=== PATIENT | male | born 1955 | race African-American/Black ===

== ENCOUNTER 2020-11-08 09:13 | Inpatient (IN) | payer MEDICARE ==
[2020-11-08 10:46] LABS: #Monocytes 0.5 thou/uL (0.11-0.59); #Neutrophils 7.5 thou/uL (1.40-6.50); %Monocytes 5.8 % (0.0-10.0); %Neutrophils 83.2 % (42.0-75.0); Hemoglobin 14.6 g/dL (14.0-18.0); Mean Corpuscular HGB CONC 31.9 g/dL (32.0-36.0); Mean Corpuscular Hemoglobin 28.7 pg (27.0-31.0); Mean Corpuscular Volume 89.9 fL (78.0-98.0); Mean Platelet Volume 9.5 fL (7.4-10.4); Platelet Count 250 thou/uL (130-400); RBC Distribution Width 12.3 % (11.5-14.5); Red Blood Cell (RBC) Count 5.11 mill/uL (4.70-6.10); White Blood Cell (WBC) Count 9.1 thou/uL (4.8-10.8)
[2020-11-08] MEDS ORDERED: Acetaminophen 500 MG TAB ONE (11:03)
[2020-11-08] MEDS ORDERED: cefTRIAXone\\ROCEPHIN 1 GM VIAL ONE (11:03)
[2020-11-08] MEDS ORDERED: Dexamethasone 10 MG/ML VIAL ONE (11:03)
[2020-11-08] MEDS ORDERED: Azithromycin 500 MG VIAL ONE (11:03)
[2020-11-08 11:06] LABS: ALT (SGPT) 87 U/L (8-55); AST (SGOT) 81 U/L (5-34); Albumin 3.7 g/dL (3.4-4.8); Alkaline Phosphatase 111 U/L (40-110); Anion Gap 19 mmol/L (10-20); BUN (Urea Nitrogen) 26 mg/dL (8.4-25.7); Bilirubin, Total 0.7 mg/dL (0.2-1.2); Calc. Creatinine Clearance 0 mL/min (70-130); Carbon Dioxide 25 mmol/L (23-31); Chloride 103 mmol/L (98-107); Globulin 4.8 g/dL (2.4-3.5); Glucose 206 mg/dL (80-115); Potassium 4.1 mmol/L (3.5-5.1); Protein, Total 8.5 g/dL (5.8-8.1); Sodium 143 mmol/L (136-145)
--- NOTE | 2020-11-08 11:08 | RAD ---
EXAM: Chest one view: HISTORY: Dyspnea COMPARISON: None FINDINGS: Poor inspiration. Heart size: Within normal limits. Lungs: Patchy bilateral interstitial, alveolar, and groundglass opacity changes throughout both lungs . No significant pleural effusion or confluent lobar pneumonia. IMPRESSION: Bilateral patchy parenchymal changes, certainly evidence for Covid pneumonia. Poor inspiration. Continued short-term follow-up.
[2020-11-08] MEDS ORDERED: Iopamidol-370 76% 500 ML 1 ML ONE (11:27)
[2020-11-08] MEDS ORDERED: Loperamide HCl 2 MG CAP PO PRN (12:18)
[2020-11-08] MEDS ORDERED: PROVENTIL INHALER 6.7 G (200 INHALATIONS) INH PRN (12:18)
[2020-11-08] MEDS ORDERED: Acetaminophen 325 MG TAB PO PRN (12:18)
[2020-11-08] MEDS ORDERED: Ondansetron ODT 4 MG TAB PO PRN (12:18)
[2020-11-08] MEDS ORDERED: Calcium Carbonate 500 MG ChewTAB PO PRN (12:18)
[2020-11-08] MEDS ORDERED: Ondansetron PF 4 MG/2 ML Vial IVP PRN (12:18)
[2020-11-08] MEDS ORDERED: Zolpidem Tartrate 5 MG TAB PO PRN (12:18)
[2020-11-08] MEDS ORDERED: HYDROcodone/Acetaminophen 5/325 mg Tablet PO PRN (12:18)
[2020-11-08] MEDS ORDERED: Bisacodyl 5 MG TAB PO PRN (12:18)
[2020-11-08] MEDS ORDERED: Guaifenesin DM 100-10/5 ML UDCUP PO PRN (12:18)
[2020-11-08] MEDS ORDERED: Senokot S 8.6-50 MG TAB PO PRN (12:18)
[2020-11-08 12:20] LABS: SARS-CoV-2 NAA Rapid Test DETECTED (NotDetected)
--- NOTE | 2020-11-08 13:07 | CT ---
EXAM: CT angiogram of the chest including 3-D rendering: HISTORY: Dyspnea COMPARISON: None FINDINGS: There is adequate opacification of the pulmonary arteries. No evidence for aortic aneurysm or dissection. Severe motion artifact considerably lowers the sensitivity of this study. No evidence for central pul monary artery thrombosis. Extensive bilateral interstitial, alveolar, and groundglass opacity parenchymal changes evidence for bilateral Covid pneumonia. Borderline size left AP window lymph node. No evidence for pleural or pericardial effusion. Small hiatal hernia. IMPRESSION: No convincing CT evidence for central pulmonary artery thrombosis. Evidence for extensive bilateral Covid pneumonia.
--- NOTE | 2020-11-08 13:12 | PDOC.HHP ---
Hospitalist HPI - History of Present Illness Shortness of breath History of Present Illness: 64-year-old -[place] male who has 7-day history of generalized weakness, diarrhea, intermittent fever, coughing, shortness of breath, patient was exposed with people who were sick, but he did not do any test, he was having increasing shortness of breath and intermittent nausea vomiting, he was also having diarrhea, he was not feeling good, he was severely weak, so patient decided to come to emergency room., In the emergency room patient was hypoxic, he was saturating 87% on room air, he was also having low-grade fever, he had routine laboratory test done which showed mild acute kidney injury as well as lactic acidosis and transaminitis, his COVID-19 test came back positive, he had elevated D-dimer and that is why we did a CT angiography in the emergency room which showed no evidence of pulmonary embolism but consistent with extensive bilateral Covid pneumonia, his chest x-ray was also consistent with Covid pneumonia. ED Course: In the emergency room patient has received Rocephin 1 g, azithromycin 500 mg, dexamethasone 10 mg, IV fluid 1 L, Tylenol 1 g VITAL SIGNS WedNov 08, 2020 09:15 KATE Bhardwaj Catherine BP: 144/102, Pulse: 122, Resp: 19, Temp: 99.7 (Oral), Pain: 7, O2 sat: 87 on (Room Air), Time: 11/08/2020 09:15. VITAL SIGNS WedNov 08, 2020 10:21 KATE Murray Tori BP: 150/80, Pulse: 96, Resp: 22, Pain: 7, O2 sat: 96 on (2L Oxygen), Time: 11/08/2020 10:21. VITAL SIGNS WedNov 08, 2020 12:52 KATE Rosado Elizabeth BP: 150/96, MAP: 114, Pulse: 86, Resp: 29, Temp: 99.5 (Oral), Pain: 0, O2 sat: 99 on (3L Oxygen), Time: 11/08/2020 12:52. Hospitalist ROS - Review of Systems Constitutional: reports: fever, weakness, malaise Eyes: denies: pain, vision change, conjunctivae inflammation, eyelid inflammation, redness, other ENT: denies: ear pain, ear discharge, nose pain, nose discharge, nose congestion, mouth pain, mouth swelling, throat pain, throat swelling, other Respiratory: reports: cough, shortness of breath, SOB with excertion. denies: dry, hemoptysis, pleuritic pain, sputum, wheezing, other Cardiovascular: denies: chest pain, palpitations, orthopnea, paroxysmal noc. d yspnea, edema, light headedness, other Gastrointestinal: reports: nausea, diarrhea. denies: vomiting, abdominal pain, constipation, melena, hematochezia, other Genitourinary: denies: dysuria, frequency, incontinence, hematuria, retention, other Musculoskeletal: denies: neck pain, shoulder pain, arm pain, back pain, hand pa in, leg pain, foot pain, other Skin: denies: rash, lesions, jay, bruising, other - Medication Medications: Allergies No Known Allergies Allergy (Unverified 11/08/20 13:01) Home medication -none Resuscitation Status - Order Detail: 11/08/20 12:05 Resuscitation Status Routine Resuscitation Status: FULL: Full Resuscitation Hospitalist History - Past Medical History Other Medical History: No past medical history - Past Surgical History Other Surgical History: Patient denies any surgical history Past psychiatric history reviewed and negative - Family History Other Family History: No strong family history of premature coronary artery disease stroke or cancer - Social History Other Social History: Patient is , lives at home, he drinks alcohol daily basis, he denies any smoking, he denies any other illicit drug abuse, - Exam General Appearance: NAD, awake alert Eye: PERRL, anicteric sclera ENT: normocephalic atraumatic, no oropharyngeal lesions Neck: supple, symmetric, no JVD, no thyromegaly Heart: RRR, no murmur, no gallops, no rubs Respiratory: no tachypnea Respiratory - other findings: Bilateral scattered rales noted, coarse breath sound, Gastrointestinal: soft, non-tender, non-distended, normal bowel sounds, no palpable masses Gastrointestinal - other findings: Obesity noted Extremities: no cyanosis, no clubbing, no edema Skin: normal turgor, no lesions Neurological: no focal deficits Musculoskeletal: normal tone, normal strength, no muscle wasting Psychiatric: normal affect, normal behavior, A&O x 3 Hospitalist Results - Labs Result Diagrams: 11/08/20 10:36 11/08/20 10:36 Lab results: WBC 9.1 thou/uL (4.8-10.8) 11/08/20 10:36 Hgb 14.6 g/dL (14.0-18.0) 11/08/20 10:36 Hct 45.9 % (42.0-52.0) 11/08/20 10:36 MCV 89.9 fL (78.0-98.0) 11/08/20 10:36 Plt Count 250 thou/uL (130-400) 11/08/20 10:36 Neutrophils % 83.2 % (42.0-75.0) H 11/08/20 10:36 Sodium 143 mmol/L (136-145) 11/08/20 10:36 Potassium 4.1 mmol/L (3.5-5.1) 11/08/20 10:36 Chloride 103 mmol/L (98-107) 11/08/20 10:36 Carbon Dioxide 25 mmol/L (23-31) 11/08/20 10:36 BUN 26 mg/dL (8.4-25.7) H 11/08/20 10:36 Creatinine 1.66 mg/dL (0.7-1.3) H 11/08/20 10:36 Glucose 206 mg/dL (80-115) H 11/08/20 10:36 Lactic Acid 2.3 mmol/L (0.5-2.2) H 11/08/20 10:36 Calcium 9.0 mg/dL (7.8-10.44) 11/08/20 10:36 Total Bilirubin 0.7 mg/dL (0.2-1.2) 11/08/20 10:36 AST 81 U/L (5-34) H 11/08/20 10:36 ALT 87 U/L (8-55) H 11/08/20 10:36 Alkaline Phosphatase 111 U/L (40-110) H 11/08/20 10:36 Troponin I 0.019 ng/mL (< 0.028) 11/08/20 10:36 C-Reactive Protein 8.77 mg/dL (= or < 0.5) H 11/08/20 10:36 Serum Total Protein 8.5 g/dL (5.8-8.1) H 11/08/20 10:36 Albumin 3.7 g/dL (3.4-4.8) 11/08/20 10:36 - EKG Interpretation EK lead EKG shows normal sinus rhythm, Rate (beats per minute): 95, with no ec topics, Interpretation: normal EKG, Conduction normal, ST segments normal, T waves normal, Ronan normal, Clinical impression: Normal EKG. - Radiology Interpretation Chest x-ray Status: image reviewed by me Additional Comment: IMPRESSION: Bilateral patchy parenchymal changes, certainly evidence for Covid pneumonia. Poor inspiration. Continued short-term follow-up. CT scan - chest Status: image reviewed by me Additional Comment: No CT evidence of pulmonary embolism, bilateral extensive Covid pneumonia Hospitalist H&P A/P - Problem (1) Acute respiratory failure due to COVID-19 Code(s): U07.1 - COVID-19; J96.00 - ACUTE RESPIRATORY FAILURE, UNSP W HYPOXIA OR HYPERCAPNIA Status: Acute (2) Pneumonia due to 2019 novel coronavirus Code(s): U07.1 - COVID-19; J12.89 - OTHER VIRAL PNEUMONIA Status: Acute (3) Acute kidney injury Code(s): N17.9 - ACUTE KIDNEY FAILURE, UNSPECIFIED Status: Acute (4) Transaminitis Code(s): R74.01 - ELEVATION OF LEVELS OF LIVER TRANSAMINASE LEVELS Status: Acute (5) Lactic acidosis Code(s): E87.2 - ACIDOSIS Status: Acute (6) Obesity (BMI 30-39.9) Code(s): E66.9 - OBESITY, UNSPECIFIED Status: Chronic - Plan Plan: Admission to medical floor Start Rocephin 1 g every 24 hours, azithromycin 500 mg IV daily for possible bacterial superinfection Remdesivir evaluation Start vitamin C, zinc sulfate, vitamin D3, vitamin C Oxygen to keep saturation above 92% We will closely monitor for any deterioration We will monitor inflammatory markers Medication reviewed and continue provide symptomatic and supportive care Patient has received IV fluid in emergency room, will repeat labs tomorrow DVT prophylaxis- Lovenox 40 mg subcu twice daily given elevated D-dimer GI prophylaxis Pepcid 20 mg twice daily CODE STATUS patient is full code Disposition plan based on clinical course were expecting patient stay in hospital more than 2 midnights.
[2020-11-08 14:29] LABS: Lactic Acid 1.9 mmol/L (0.5-2.2)
[2020-11-08] MEDS ORDERED: REMDESIVIR (EUA) 200 MG in Sodium Chloride 0.9% 250 ML 210 ML IV SCH (15:00)
[2020-11-08 15:46] VITALS: BMI 37.4
[2020-11-08] MEDS ORDERED: FLU VACC QS2020-21(65YR UP)/PF 240 MCG/0.7 ML SYRINGE IM ONE (17:00)
[2020-11-08] MEDS: Enoxaparin Sodium 40 MG/0.4 ML SYRINGE SC SCH (19:24)
[2020-11-08] MEDS: Famotidine 20 MG TAB PO SCH (19:24)
[2020-11-09] MEDS ORDERED: Labetalol HCl 100 MG/20 ML VIAL SLOW IVP PRN (00:44)
[2020-11-09] MEDS ORDERED: hydrALAZINE 20 MG/ML VIAL SLOW IVP PRN (00:44)
[2020-11-09 07:00] LABS: ALT (SGPT) 171 U/L (8-55); AST (SGOT) 195 U/L (5-34); Albumin 3.3 g/dL (3.4-4.8); Alkaline Phosphatase 103 U/L (40-110); Anion Gap 17 mmol/L (10-20); BUN (Urea Nitrogen) 23 mg/dL (8.4-25.7); Bilirubin, Total 0.5 mg/dL (0.2-1.2); Calc. Creatinine Clearance 94 mL/min (70-130); Calcium 8.4 mg/dL (7.8-10.44); Carbon Dioxide 21 mmol/L (23-31); Chloride 107 mmol/L (98-107); Glucose 151 mg/dL (80-115); Potassium 3.6 mmol/L (3.5-5.1); Protein, Total 7.3 g/dL (5.8-8.1); Sodium 141 mmol/L (136-145)
[2020-11-09 07:53] LABS: Hemoglobin 13.4 g/dL (14.0-18.0); Mean Corpuscular HGB CONC 34.1 g/dL (32.0-36.0); Mean Corpuscular Hemoglobin 30.7 pg (27.0-31.0); Mean Corpuscular Volume 89.9 fL (78.0-98.0); Mean Platelet Volume 8.7 fL (7.4-10.4); Platelet Count 221 thou/uL (130-400); RBC Distribution Width 12.2 % (11.5-14.5); Red Blood Cell (RBC) Count 4.37 mill/uL (4.70-6.10); White Blood Cell (WBC) Count 7.8 thou/uL (4.8-10.8)
[2020-11-09 07:54] LABS: Band 7 % (5-11); Lymphocytes 12 % (21-51); MDiff Complete? YES; Monocytes 3 % (0-10); Neutrophil 78 % (42-75)
[2020-11-09] MEDS: Enoxaparin Sodium 40 MG/0.4 ML SYRINGE SC SCH ×2 (07:58→20:47)
[2020-11-09] MEDS: Ascorbic Acid 500 mg Chewable Tablet PO SCH (07:59)
[2020-11-09] MEDS: Dexamethasone 4 mg/ml Vial SLOW IVP SCH (07:59)
[2020-11-09] MEDS: Famotidine 20 MG TAB PO SCH ×2 (07:59→20:51)
[2020-11-09] MEDS: Zinc Sulfate 220 MG CAP PO SCH (07:59)
[2020-11-09] MEDS: Cholecalciferol 1,000 UNITS (25 MCG) TAB PO SCH (07:59)
[2020-11-09] MEDS: Vitamin E 400 UNITS CAP PO SCH (08:57)
--- NOTE | 2020-11-09 10:16 | PDOC.HOSPP ---
- Subjective Encounter Date: 11/09/20 Encounter Time: 09:00 Subjective: Patient seen and examined bedside today, patient is doing much better, no fever, less short of breath, - Objective Vital Signs & Weight: Vital Signs (12 hours) Temp Pulse Resp BP BP Pulse Ox 11/09/20 09:39 93 L 11/09/20 08:00 98.6 F 80 18 163/96 H 93 L 11/09/20 03:53 98.5 F 74 18 132/79 94 L 11/09/20 02:06 99.0 F 80 16 189/99 H 95 11/09/20 01:00 80 189/90 H 11/09/20 00:04 95 Weight Admit Weight 239 lb 0.2 oz Weight 239 lb 0.2 oz I&O: 11/08/20 11/09/20 11/10/20 06:59 06:59 06:59 Intake Total 490 Balance 490 Result Diagrams: 11/09/20 05:51 11/09/20 05:51 Hospitalist ROS - Review of Systems Constitutional: reports: weakness. denies: fever, chills, sweats, malaise, other Respiratory: reports: shortness of breath, SOB with excertion. denies: cough, dry, hemoptysis, pleuritic pain, sputum, wheezing, other Cardiovascular: denies: chest pain, palpitations, orthopnea, paroxysmal noc. dyspnea, edema, light headedness, other Gastrointestinal: denies: nausea, vomiting, abdominal pain, diarrhea, constipation, melena, hematochezia, other Genitourinary: denies: dysuria, frequency, incontinence, hematuria, retention, other Musculoskeletal: denies: neck pain, shoulder pain, arm pain, back pain, hand pain, leg pain, foot pain, other Skin: denies: rash, lesions, jay, bruising, other - Medication Medications: Active Medications Generic Name Dose Route Start Last Admin Trade Name Freq PRN Reason Stop Dose Admin Ascorbic Acid 1,000 mg 11/09/20 09:00 11/09/20 07:59 Ascorbic Acid 500 Mg Chewable Tablet PO 1,000 mg DAILY DONAVON Administration Cholecalciferol 1,000 units 11/09/20 09:00 11/09/20 07:59 Cholecalciferol 1,000 Units (25 Mcg) Tab PO 1,000 units DAILY DONAVON Administration Dexamethasone 6 mg 11/09/20 09:00 11/09/20 07:59 Dexamethasone 4 Mg/Ml Vial SLOW IVP 6 mg DAILY DONAVON Administration Enoxaparin Sodium 40 mg 11/08/20 21:00 11/09/20 07:58 Enoxaparin Sodium 40 Mg/0.4 Ml Syringe SC 40 mg 0900,2100 DONAVON Administration Famotidine 20 mg 11/08/20 21:00 11/09/20 07:59 Famotidine 20 Mg Tab PO 20 mg BID DONAVON Administration Labetalol HCl 20 mg 11/09/20 00:44 11/09/20 01:00 Labetalol Hcl 100 Mg/20 Ml Vial SLOW IVP 20 mg Q4H PRN Administration SBP > 180 and HR >/= 70 Vitamin E 400 units 11/09/20 09:00 11/09/20 08:57 Vitamin E 400 Units Cap PO 400 units DAILY DONAVON Administration Zinc Sulfate 220 mg 11/09/20 09:00 11/09/20 07:59 Zinc Sulfate 220 Mg Cap PO 220 mg DAILY DONAVON Administration Zolpidem Tartrate 5 mg 11/08/20 12:18 11/09/20 01:01 Zolpidem Tartrate 5 Mg Tab PO 5 mg HSPRN PRN Administration Insomnia - Exam General Appearance: NAD, awake alert Eye: PERRL, anicteric sclera ENT: normocephalic atraumatic, no oropharyngeal lesions Neck: supple, symmetric, no JVD, no thyromegaly Heart: RRR, no murmur, no gallops, no rubs Respiratory: no wheezes, no ronchi, no tachypnea Respiratory - other findings: Bilateral scattered rales noted, Gastrointestinal: soft, non-tender, non-distended, normal bowel sounds Gastrointestinal - other findings: Obesity Extremities: no cyanosis, no clubbing, no edema Skin: normal turgor, no lesions Neurological: no focal deficits Musculoskeletal: normal tone, normal strength Psychiatric: normal affect, normal behavior Hosp A/P (1) Acute respiratory failure due to COVID-19 Code(s): U07.1 - COVID-19; J96.00 - ACUTE RESPIRATORY FAILURE, UNSP W HYPOXIA OR HYPERCAPNIA Status: Acute (2) Pneumonia due to 2019 novel coronavirus Code(s): U07.1 - COVID-19; J12.89 - OTHER VIRAL PNEUMONIA Status: Acute (3) Acute kidney injury Code(s): N17.9 - ACUTE KIDNEY FAILURE, UNSPECIFIED Status: Resolved (4) Transaminitis Code(s): R74.01 - ELEVATION OF LEVELS OF LIVER TRANSAMINASE LEVELS Status: Acute (5) Lactic acidosis Code(s): E87.2 - ACIDOSIS Status: Acute (6) Obesity (BMI 30-39.9) Code(s): E66.9 - OBESITY, UNSPECIFIED Status: Chronic - Plan old records reviewed/req, continue antibiotics, respiratory therapy, DVT proph w/lovenox Continue remdesivir therapy, Continue vitamin supplementation continue dexamethasone Empiric antibiotic therapy Rocephin and azithromycin Medication reviewed and continue provide symptomatic and supportive care We will repeat labs tomorrow
[2020-11-09] MEDS: Azithromycin 500 MG in Sodium Chloride 0.9% 250 ML 250 ML IVPB SCH (10:54)
[2020-11-09] MEDS: cefTRIAXone\\ROCEPHIN 1 GM in Sodium Chloride 0.9% 100 ML IVPB SCH (13:47)
[2020-11-09] MEDS: REMDESIVIR (EUA) 100 MG in Sodium Chloride 0.9% 250 ML 230 ML IV SCH (15:06)
[2020-11-10 06:19] LABS: #Lymphocytes 1.3 thou/uL (1.20-3.40); #Monocytes 0.7 thou/uL (0.11-0.59); #Neutrophils 7.4 thou/uL (1.40-6.50); %Basophils 0.1 % (0.0-1.0); %Eosinophils 0.1 % (0.0-10.0); %Lymphocytes 13.6 % (21.0-51.0); %Neutrophils 79.2 % (42.0-75.0); Hemoglobin 12.8 g/dL (14.0-18.0); Mean Corpuscular HGB CONC 32.2 g/dL (32.0-36.0); Mean Corpuscular Hemoglobin 29.1 pg (27.0-31.0); Mean Corpuscular Volume 90.3 fL (78.0-98.0); Mean Platelet Volume 8.6 fL (7.4-10.4); Platelet Count 248 thou/uL (130-400); RBC Distribution Width 12.1 % (11.5-14.5); Red Blood Cell (RBC) Count 4.42 mill/uL (4.70-6.10); White Blood Cell (WBC) Count 9.3 thou/uL (4.8-10.8)
[2020-11-10 06:53] LABS: ALT (SGPT) 154 U/L (8-55); AST (SGOT) 91 U/L (5-34); Albumin 3.1 g/dL (3.4-4.8); Alkaline Phosphatase 91 U/L (40-110); Anion Gap 15 mmol/L (10-20); BUN (Urea Nitrogen) 21 mg/dL (8.4-25.7); Bilirubin, Total 0.4 mg/dL (0.2-1.2); Calc. Creatinine Clearance 100 mL/min (70-130); Calcium 8.3 mg/dL (7.8-10.44); Carbon Dioxide 23 mmol/L (23-31); Chloride 109 mmol/L (98-107); Globulin 3.7 g/dL (2.4-3.5); Glucose 131 mg/dL (80-115); Potassium 3.7 mmol/L (3.5-5.1); Protein, Total 6.8 g/dL (5.8-8.1); Sodium 143 mmol/L (136-145)
[2020-11-10 07:07] LABS: HBCM Index 0.07 S/CO (0-0.79); HBSAg Index 0.18 S/CO (0-0.99); Hep A IgM AB Non-Reactive (NonReactive); Hep A IgM S/CO 0.42 S/CO (0-0.79); Hep B Surf Ag Non-Reactive S/CO (NonReactive); Hep C IgG Ab Non-Reactive (NonReactive); Hep C Index 0.13 S/CO (0-0.79); Hepatitis B Core IgM Abs Non-Reactive (NonReactive)
[2020-11-10] MEDS: Famotidine 20 MG TAB PO SCH ×2 (08:17→20:03)
[2020-11-10] MEDS: Cholecalciferol 1,000 UNITS (25 MCG) TAB PO SCH (08:18)
[2020-11-10] MEDS: Enoxaparin Sodium 40 MG/0.4 ML SYRINGE SC SCH ×2 (08:18→20:04)
[2020-11-10] MEDS: Dexamethasone 4 mg/ml Vial SLOW IVP SCH (08:18)
[2020-11-10] MEDS: Zinc Sulfate 220 MG CAP PO SCH (08:18)
[2020-11-10] MEDS: Ascorbic Acid 500 mg Chewable Tablet PO SCH (08:18)
[2020-11-10] MEDS: Metoprolol Tartrate 25 MG TAB PO SCH ×2 (09:47→20:03)
[2020-11-10] MEDS: Amlodipine 5 MG TAB PO SCH (09:47)
--- NOTE | 2020-11-10 10:50 | PDOC.HOSPP ---
- Subjective Encounter Date: 11/10/20 Encounter Time: 10:00 Subjective: Patient is doing okay, he is on 2 L nasal cannula oxygen, no fever, no nausea or vomiting, - Objective Vital Signs & Weight: Vital Signs (12 hours) Temp Pulse Resp BP BP Pulse Ox 11/10/20 09:47 78 173/82 H 11/10/20 08:00 98.2 F 78 18 173/82 H 95 Weight Admit Weight 239 lb 0.2 oz Weight 239 lb 0.2 oz I&O: 11/09/20 11/10/20 11/11/20 06:59 06:59 06:59 Intake Total 490 1520 Balance 490 1520 Result Diagrams: 11/10/20 05:31 11/10/20 05:31 Hospitalist ROS - Review of Systems Constitutional: reports: weakness. denies: fever, chills, sweats, malaise, other Respiratory: reports: SOB with excertion. denies: cough, dry, shortness of breath, hemoptysis, pleuritic pain, sputum, wheezing, other Cardiovascular: denies: chest pain, palpitations, orthopnea, paroxysmal noc. dyspnea, edema, light headedness, other Gastrointestinal: denies: nausea, vomiting, abdominal pain, diarrhea, constipation, melena, hematochezia, other Genitourinary: denies: dysuria, frequency, incontinence, hematuria, retention, other Musculoskeletal: denies: neck pain, shoulder pain, arm pain, back pain, hand pain, leg pain, foot pain, other Skin: denies: rash, lesions, jay, bruising, other - Medication Medications: Active Medications Generic Name Dose Route Start Last Admin Trade Name Freq PRN Reason Stop Dose Admin Amlodipine Besylate 5 mg 11/10/20 09:00 11/10/20 09:47 Amlodipine 5 Mg Tab PO 5 mg DAILY DONAVON Administration Ascorbic Acid 1,000 mg 11/09/20 09:00 11/10/20 08:18 Ascorbic Acid 500 Mg Chewable Tablet PO 1,000 mg DAILY DONAVON Administration Cholecalciferol 1,000 units 11/09/20 09:00 11/10/20 08:18 Cholecalciferol 1,000 Units (25 Mcg) Tab PO 1,000 units DAILY DONAVON Administration Dexamethasone 6 mg 11/09/20 09:00 11/10/20 08:18 Dexamethasone 4 Mg/Ml Vial SLOW IVP 6 mg DAILY DONAVON Administration Enoxaparin Sodium 40 mg 11/08/20 21:00 11/10/20 08:18 Enoxaparin Sodium 40 Mg/0.4 Ml Syringe SC 40 mg 0900,2100 DONAVON Administration Famotidine 20 mg 11/08/20 21:00 11/10/20 08:17 Famotidine 20 Mg Tab PO 20 mg BID DONAVON Administration Azithromycin 500 mg/ Sodium 250 mls @ 250 mls/hr 11/09/20 12:00 11/09/20 10:54 Chloride IVPB 250 mls 1200 DONAVON Administration Ceftriaxone Sodium 1 gm/ 100 mls @ 200 mls/hr 11/09/20 13:00 11/09/20 13:47 Sodium Chloride IVPB 100 mls 1300 DONAVON Administration Remdesivir 100 mg/ Sodium 250 mls @ 250 mls/hr 11/09/20 15:00 11/09/20 15:06 Chloride IV 11/12/20 15:59 250 mls 1500 DONAVON Administration Labetalol HCl 20 mg 11/09/20 00:44 11/09/20 01:00 Labetalol Hcl 100 Mg/20 Ml Vial SLOW IVP 20 mg Q4H PRN Administration SBP > 180 and HR >/= 70 Metoprolol Tartrate 25 mg 11/10/20 09:00 11/10/20 09:47 Metoprolol Tartrate 25 Mg Tab PO 25 mg BID DONAVON Administration Vitamin E 400 units 11/09/20 09:00 11/09/20 08:57 Vitamin E 400 Units Cap PO 400 units DAILY DONAVON Administration Zinc Sulfate 220 mg 11/09/20 09:00 11/10/20 08:18 Zinc Sulfate 220 Mg Cap PO 220 mg DAILY DONAVON Administration Zolpidem Tartrate 5 mg 11/08/20 12:18 11/09/20 01:01 Zolpidem Tartrate 5 Mg Tab PO 5 mg HSPRN PRN Administration Insomnia - Exam General Appearance: NAD, awake alert Eye: PERRL, anicteric sclera ENT: normocephalic atraumatic, no oropharyngeal lesions Neck: supple, symmetric, no JVD Heart: RRR, no murmur, no gallops, no rubs Respiratory: no wheezes, no ronchi Respiratory - other findings: Few basilar rales noted Gastrointestinal: soft, non-tender, non-distended, normal bowel sounds Gastrointestinal - other findings: Obesity Extremities: no clubbing, no edema Skin: normal turgor, no lesions Neurological: no focal deficits Musculoskeletal: normal tone, normal strength Psychiatric: normal affect, normal behavior, A&O x 3 Hosp A/P (1) Acute respiratory failure due to COVID-19 Code(s): U07.1 - COVID-19; J96.00 - ACUTE RESPIRATORY FAILURE, UNSP W HYPOXIA OR HYPERCAPNIA Status: Acute (2) Pneumonia due to 2019 novel coronavirus Code(s): U07.1 - COVID-19; J12.89 - OTHER VIRAL PNEUMONIA Status: Acute (3) Acute kidney injury Code(s): N17.9 - ACUTE KIDNEY FAILURE, UNSPECIFIED Status: Resolved (4) Transaminitis Code(s): R74.01 - ELEVATION OF LEVELS OF LIVER TRANSAMINASE LEVELS Status: Acute (5) Lactic acidosis Code(s): E87.2 - ACIDOSIS Status: Acute (6) Obesity (BMI 30-39.9) Code(s): E66.9 - OBESITY, UNSPECIFIED Status: Chronic - Plan old records reviewed/req, continue antibiotics, respiratory therapy, DVT proph w/lovenox Continue remdesivir therapy, Continue vitamin supplementation continue dexamethasone Empiric antibiotic therapy Rocephin and azithromycin Wean off oxygen as tolerated Ambulate as tolerated Medication reviewed and continue provide symptomatic and supportive care We will repeat labs tomorrow Expecting discharge once remdesivir course finish
[2020-11-10] MEDS: Azithromycin 500 MG in Sodium Chloride 0.9% 250 ML 250 ML IVPB SCH (12:24)
[2020-11-10] MEDS: Vitamin E 400 UNITS CAP PO SCH (12:25)
[2020-11-10] MEDS: cefTRIAXone\\ROCEPHIN 1 GM in Sodium Chloride 0.9% 100 ML IVPB SCH (14:23)
[2020-11-10] MEDS: REMDESIVIR (EUA) 100 MG in Sodium Chloride 0.9% 250 ML 230 ML IV SCH (16:23)
[2020-11-11 07:17] LABS: ALT (SGPT) 112 U/L (8-55); AST (SGOT) 42 U/L (5-34); Alkaline Phosphatase 90 U/L (40-110); Anion Gap 12 mmol/L (10-20); BUN (Urea Nitrogen) 19 mg/dL (8.4-25.7); Bilirubin, Total 0.4 mg/dL (0.2-1.2); CRP (Inflammatory) 2.92 mg/dL (= or < 0.5); Calc. Creatinine Clearance 106 mL/min (70-130); Calcium 8.2 mg/dL (7.8-10.44); Carbon Dioxide 25 mmol/L (23-31); Chloride 108 mmol/L (98-107); Globulin 3.6 g/dL (2.4-3.5); Glucose 136 mg/dL (80-115); Protein, Total 6.6 g/dL (5.8-8.1); Sodium 141 mmol/L (136-145)
[2020-11-11 07:25] LABS: #Lymphocytes 1.2 thou/uL (1.20-3.40); #Monocytes 0.8 thou/uL (0.11-0.59); #Neutrophils 6.8 thou/uL (1.40-6.50); %Basophils 0.1 % (0.0-1.0); %Eosinophils 0.1 % (0.0-10.0); %Lymphocytes 13.6 % (21.0-51.0); %Monocytes 8.9 % (0.0-10.0); %Neutrophils 77.3 % (42.0-75.0); Hemoglobin 13.1 g/dL (14.0-18.0); Mean Corpuscular HGB CONC 31.2 g/dL (32.0-36.0); Mean Corpuscular Hemoglobin 28.3 pg (27.0-31.0); Mean Corpuscular Volume 90.6 fL (78.0-98.0); Mean Platelet Volume 8.6 fL (7.4-10.4); Platelet Count 256 thou/uL (130-400); RBC Distribution Width 12.1 % (11.5-14.5); Red Blood Cell (RBC) Count 4.62 mill/uL (4.70-6.10); White Blood Cell (WBC) Count 8.8 thou/uL (4.8-10.8)
[2020-11-11] MEDS: Metoprolol Tartrate 25 MG TAB PO SCH ×2 (08:45→20:27)
[2020-11-11] MEDS: Zinc Sulfate 220 MG CAP PO SCH (08:45)
[2020-11-11] MEDS: Amlodipine 5 MG TAB PO SCH ×3 (08:45→14:59)
[2020-11-11] MEDS: Famotidine 20 MG TAB PO SCH ×2 (08:45→20:26)
[2020-11-11] MEDS: Enoxaparin Sodium 40 MG/0.4 ML SYRINGE SC SCH ×2 (08:46→20:27)
[2020-11-11] MEDS: Dexamethasone 4 mg/ml Vial SLOW IVP SCH (08:46)
[2020-11-11] MEDS: Ascorbic Acid 500 mg Chewable Tablet PO SCH (08:46)
[2020-11-11] MEDS: Cholecalciferol 1,000 UNITS (25 MCG) TAB PO SCH (08:46)
[2020-11-11] MEDS: Vitamin E 400 UNITS CAP PO SCH (08:46)
[2020-11-11] MEDS: Azithromycin 500 MG in Sodium Chloride 0.9% 250 ML 250 ML IVPB SCH (11:38)
[2020-11-11] MEDS ORDERED: hydrALAZINE 20 MG/ML VIAL SLOW IVP PRN (13:33)
[2020-11-11] MEDS: cefTRIAXone\\ROCEPHIN 1 GM in Sodium Chloride 0.9% 100 ML IVPB SCH (14:14)
--- NOTE | 2020-11-11 14:18 | PDOC.HOSPP ---
- Subjective Encounter Date: 11/11/20 Subjective: feels well, still a bit sob but reports improvement. - Objective Vital Signs & Weight: Vital Signs (12 hours) Temp Pulse Resp BP Pulse Ox 11/11/20 14:13 63 11/11/20 12:51 98.4 F 63 20 170/90 H 100 11/11/20 09:08 98.8 F 66 20 171/84 H 95 11/11/20 08:45 64 11/11/20 08:00 92 L 11/11/20 04:00 99 F 64 18 166/92 H 100 Weight Admit Weight 239 lb 0.2 oz Weight 239 lb 0.2 oz I&O: 11/10/20 11/11/20 11/12/20 06:59 06:59 06:59 Intake Total 1520 300 Balance 1520 300 Result Diagrams: 11/11/20 06:34 11/11/20 06:34 Hospitalist ROS - Medication Medications: Active Medications Generic Name Dose Route Start Last Admin Trade Name Freq PRN Reason Stop Dose Admin Amlodipine Besylate 10 mg 11/11/20 13:45 11/11/20 14:13 Amlodipine 5 Mg Tab PO 11/11/20 16:00 10 mg NOW DONAVON Administration Ascorbic Acid 1,000 mg 11/09/20 09:00 11/11/20 08:46 Ascorbic Acid 500 Mg Chewable Tablet PO 1,000 mg DAILY DONAVON Administration Cholecalciferol 1,000 units 11/09/20 09:00 11/11/20 08:46 Cholecalciferol 1,000 Units (25 Mcg) Tab PO 1,000 units DAILY DONAVON Administration Dexamethasone 6 mg 11/09/20 09:00 11/11/20 08:46 Dexamethasone 4 Mg/Ml Vial SLOW IVP 6 mg DAILY DONAVON Administration Enoxaparin Sodium 40 mg 11/08/20 21:00 11/11/20 08:46 Enoxaparin Sodium 40 Mg/0.4 Ml Syringe SC 40 mg 0900,2100 DONAVON Administration Famotidine 20 mg 11/08/20 21:00 11/11/20 08:45 Famotidine 20 Mg Tab PO 20 mg BID DONAVON Administration Azithromycin 500 mg/ Sodium 250 mls @ 250 mls/hr 11/09/20 12:00 11/11/20 11:38 Chloride IVPB 250 mls 1200 DONAVON Administration Ceftriaxone Sodium 1 gm/ 100 mls @ 200 mls/hr 11/09/20 13:00 11/11/20 14:14 Sodium Chloride IVPB 100 mls 1300 DONAVON Administration Remdesivir 100 mg/ Sodium 250 mls @ 250 mls/hr 11/09/20 15:00 11/10/20 16:23 Chloride IV 11/12/20 15:59 250 mls 1500 DONAVON Administration Labetalol HCl 20 mg 11/09/20 00:44 11/09/20 01:00 Labetalol Hcl 100 Mg/20 Ml Vial SLOW IVP 20 mg Q4H PRN Administration SBP > 180 and HR >/= 70 Metoprolol Tartrate 25 mg 11/10/20 09:00 11/11/20 08:45 Metoprolol Tartrate 25 Mg Tab PO 25 mg BID DONAVON Administration Vitamin E 400 units 11/09/20 09:00 11/11/20 08:46 Vitamin E 400 Units Cap PO 400 units DAILY DONAVON Administration Zinc Sulfate 220 mg 11/09/20 09:00 11/11/20 08:45 Zinc Sulfate 220 Mg Cap PO 220 mg DAILY DONAVON Administration Zolpidem Tartrate 5 mg 11/08/20 12:18 11/09/20 01:01 Zolpidem Tartrate 5 Mg Tab PO 5 mg HSPRN PRN Administration Insomnia - Exam General Appearance: NAD, awake alert Eye: PERRL ENT: normocephalic atraumatic Neck: supple, symmetric Respiratory: CTAB Gastrointestinal: soft Neurological: cranial nerve grossly intact Hosp A/P (1) Hypertension Code(s): I10 - ESSENTIAL (PRIMARY) HYPERTENSION Status: Acute (2) Acute respiratory failure due to COVID-19 Code(s): U07.1 - COVID-19; J96.00 - ACUTE RESPIRATORY FAILURE, UNSP W HYPOXIA OR HYPERCAPNIA Status: Acute (3) Pneumonia due to 2019 novel coronavirus Code(s): U07.1 - COVID-19; J12.89 - OTHER VIRAL PNEUMONIA Status: Acute (4) Transaminitis Code(s): R74.01 - ELEVATION OF LEVELS OF LIVER TRANSAMINASE LEVELS Status: Acute (5) Obesity (BMI 30-39.9) Code(s): E66.9 - OBESITY, UNSPECIFIED Status: Chronic - Plan He feels better, his BP is elevated, I increased his Amlodipine and changed the criteria for Hydralazine. RN tried to wean him off oxygen but he still required to be on 4 liters, he mi ght need to be on home oxygen, will reassess after Remdesivir. otherwise will continue same management, reassess ATB tomorrow he might not need to be on them. lab holiday tomorrow since his labs are stable.
[2020-11-11] MEDS: REMDESIVIR (EUA) 100 MG in Sodium Chloride 0.9% 250 ML 230 ML IV SCH (15:59)
[2020-11-11] MEDS: hydrALAZINE 20 MG/ML VIAL SLOW IVP PRN (16:41)
[2020-11-11] MEDS: Benzonatate 100 MG CAP PO PRN (20:31)
[2020-11-12] MEDS: Vitamin E 400 UNITS CAP PO SCH (10:23)
[2020-11-12] MEDS: Ascorbic Acid 500 mg Chewable Tablet PO SCH (10:23)
[2020-11-12] MEDS: Amlodipine 5 MG TAB PO SCH (10:24)
[2020-11-12] MEDS: Famotidine 20 MG TAB PO SCH ×2 (10:24→19:55)
[2020-11-12] MEDS: Metoprolol Tartrate 25 MG TAB PO SCH ×2 (10:24→19:55)
[2020-11-12] MEDS: Dexamethasone 4 mg/ml Vial SLOW IVP SCH (10:25)
[2020-11-12] MEDS: Cholecalciferol 1,000 UNITS (25 MCG) TAB PO SCH (10:26)
[2020-11-12] MEDS: Enoxaparin Sodium 40 MG/0.4 ML SYRINGE SC SCH ×2 (10:26→19:55)
[2020-11-12] MEDS: Zinc Sulfate 220 MG CAP PO SCH (10:53)
[2020-11-12] MEDS: cefTRIAXone\\ROCEPHIN 1 GM in Sodium Chloride 0.9% 100 ML IVPB SCH (12:58)
[2020-11-12] MEDS: Azithromycin 500 MG in Sodium Chloride 0.9% 250 ML 250 ML IVPB SCH (14:54)
[2020-11-12] MEDS: REMDESIVIR (EUA) 100 MG in Sodium Chloride 0.9% 250 ML 230 ML IV SCH (16:41)
--- NOTE | 2020-11-12 17:40 | PDOC.HOSPP ---
- Subjective Encounter Date: 11/12/20 Subjective: feels the same, maybe a bit improved. - Objective Vital Signs & Weight: Vital Signs (12 hours) Temp Pulse Resp BP Pulse Ox 11/12/20 12:27 98.4 F 65 20 177/90 H 94 L 11/12/20 08:00 98.3 F 61 20 177/80 H 96 Weight Admit Weight 239 lb 0.2 oz Weight 239 lb 0.2 oz I&O: 11/11/20 11/12/20 11/13/20 06:59 06:59 06:59 Intake Total 300 480 Balance 300 480 Result Diagrams: 11/11/20 06:34 11/11/20 06:34 Hospitalist ROS - Medication Medications: Active Medications Generic Name Dose Route Start Last Admin Trade Name Freq PRN Reason Stop Dose Admin Amlodipine Besylate 10 mg 11/12/20 09:00 11/12/20 10:24 Amlodipine 5 Mg Tab PO 10 mg DAILY DONAVON Administration Ascorbic Acid 1,000 mg 11/09/20 09:00 11/12/20 10:23 Ascorbic Acid 500 Mg Chewable Tablet PO 1,000 mg DAILY DONAVON Administration Benzonatate 100 mg 11/08/20 12:18 11/11/20 20:31 Benzonatate 100 Mg Cap PO 100 mg Q4H PRN Administration Cough Cholecalciferol 1,000 units 11/09/20 09:00 11/12/20 10:26 Cholecalciferol 1,000 Units (25 Mcg) Tab PO 1,000 units DAILY DONAVON Administration Dexamethasone 6 mg 11/09/20 09:00 11/12/20 10:25 Dexamethasone 4 Mg/Ml Vial SLOW IVP 6 mg DAILY DONAVON Administration Enoxaparin Sodium 40 mg 11/08/20 21:00 11/12/20 10:26 Enoxaparin Sodium 40 Mg/0.4 Ml Syringe SC 40 mg 0900,2100 DONAVON Administration Famotidine 20 mg 11/08/20 21:00 11/12/20 10:24 Famotidine 20 Mg Tab PO 20 mg BID DONAVON Administration Guaifenesin/Dextromethorphan 15 ml 11/08/20 12:18 11/11/20 20:31 Guaifenesin Dm 100-10/5 Ml Udcup PO 15 ml Q4H PRN Administration Cough Hydralazine HCl 5 mg 11/11/20 14:43 11/11/20 16:41 Hydralazine 20 Mg/Ml Vial SLOW IVP 5 mg Q4H PRN Administration SBP > 140 mmhg Azithromycin 500 mg/ Sodium 250 mls @ 250 mls/hr 11/09/20 12:00 11/12/20 14:54 Chloride IVPB 250 mls 1200 DONAVON Administration Ceftriaxone Sodium 1 gm/ 100 mls @ 200 mls/hr 11/09/20 13:00 11/12/20 12:58 Sodium Chloride IVPB 100 mls 1300 DONAVON Administration Labetalol HCl 20 mg 11/09/20 00:44 11/09/20 01:00 Labetalol Hcl 100 Mg/20 Ml Vial SLOW IVP 20 mg Q4H PRN Administration SBP > 180 and HR >/= 70 Metoprolol Tartrate 25 mg 11/10/20 09:00 11/12/20 10:24 Metoprolol Tartrate 25 Mg Tab PO 25 mg BID DONAVON Administration Vitamin E 400 units 11/09/20 09:00 11/12/20 10:23 Vitamin E 400 Units Cap PO 400 units DAILY DONAVON Administration Zinc Sulfate 220 mg 11/09/20 09:00 11/12/20 10:53 Zinc Sulfate 220 Mg Cap PO Not Given DAILY DONAVON Zolpidem Tartrate 5 mg 11/08/20 12:18 11/09/20 01:01 Zolpidem Tartrate 5 Mg Tab PO 5 mg HSPRN PRN Administration Insomnia - Exam General Appearance: awake alert Eye: PERRL ENT: normocephalic atraumatic Neck: supple, symmetric Heart: RRR, no murmur, no gallops Respiratory: CTAB Gastrointestinal: soft, non-tender, non-distended Extremities: no cyanosis, no clubbing Skin: normal turgor, no lesions Hosp A/P (1) Hypertension Code(s): I10 - ESSENTIAL (PRIMARY) HYPERTENSION Status: Acute (2) Acute respiratory failure due to COVID-19 Code(s): U07.1 - COVID-19; J96.00 - ACUTE RESPIRATORY FAILURE, UNSP W HYPOXIA OR HYPERCAPNIA Status: Acute (3) Pneumonia due to 2019 novel coronavirus Code(s): U07.1 - COVID-19; J12.89 - OTHER VIRAL PNEUMONIA Status: Acute (4) Transaminitis Code(s): R74.01 - ELEVATION OF LEVELS OF LIVER TRANSAMINASE LEVELS Status: Acute (5) Obesity (BMI 30-39.9) Code(s): E66.9 - OBESITY, UNSPECIFIED Status: Chronic - Plan He feels better, his BP is elevated, I increased his Amlodipine and changed the criteria for Hydralazine. RN tried to wean him off oxygen but he still required to be on 4 liters, he might need to be on home oxygen, will reassess after Remdesivir. otherwise will continue same management, reassess ATB tomorrow he might not need to be on them. lab holiday tomorrow since his labs are stable. plan for today 11/12 looking the same and slightly better. BP was controlled when I saw him, will wait on Amlodipine dose increase to take effect. finished Remdesivir, still need oxygen, will place referral for home oxygen, potentially can go home tomorrow.
[2020-11-12] MEDS: Benzonatate 100 MG CAP PO PRN (19:55)
[2020-11-13] MEDS: hydrALAZINE 20 MG/ML VIAL SLOW IVP PRN (05:24)
[2020-11-13] MEDS: Ascorbic Acid 500 mg Chewable Tablet PO SCH (08:49)
[2020-11-13] MEDS: Amlodipine 5 MG TAB PO SCH (08:49)
[2020-11-13] MEDS: Famotidine 20 MG TAB PO SCH (08:49)
[2020-11-13] MEDS: Vitamin E 400 UNITS CAP PO SCH (08:49)
[2020-11-13] MEDS: Cholecalciferol 1,000 UNITS (25 MCG) TAB PO SCH (08:49)
[2020-11-13] MEDS: Zinc Sulfate 220 MG CAP PO SCH (08:50)
[2020-11-13] MEDS: Enoxaparin Sodium 40 MG/0.4 ML SYRINGE SC SCH (08:50)
[2020-11-13] MEDS: Metoprolol Tartrate 25 MG TAB PO SCH (08:50)
[2020-11-13] MEDS: Dexamethasone 4 mg/ml Vial SLOW IVP SCH (08:51)
[2020-11-13 08:56] VITALS: TEMP 98.6
[2020-11-13] MEDS: Azithromycin 500 MG in Sodium Chloride 0.9% 250 ML 250 ML IVPB SCH (12:42)
[2020-11-13] MEDS: cefTRIAXone\\ROCEPHIN 1 GM in Sodium Chloride 0.9% 100 ML IVPB SCH (14:18)
--- NOTE | 2020-11-13 16:19 | PDOC.DS.DS ---
Provider - Provider Date of Admission: 11/08/20 12:18 Date of Discharge: 11/13/20 Admitting Provider: Reese Arredondo MD Primary Care Physician: NO PCP PROVIDER Course - Hospital Course Hospital Course: 64-year-old -[place] male who has 7-day history of generalized weakness, diarrhea, intermittent fever, coughing, shortness of breath, patient was exposed with people who were sick, but he did not do any test, he was having increasing shortness of breath and intermittent nausea vomiting, he was also having diarrhea, he was not feeling good, he was severely weak, so patient decided to come to emergency room., In the emergency room patient was hypoxic, he was saturating 87% on room air, he was also having low-grade fever, he had routine laboratory test done which showed mild acute kidney injury as well as lactic acidosis and transaminitis, his COVID-19 test came back positive, he had elevated D-dimer and that is why we did a CT angiography in the emergency room which showed no evidence of pulmonary embolism but consistent with extensive bilateral Covid pneumonia, his chest x-ray was also consistent with Covid pneumonia. During his stay he was started on IV Decadron, Rocephin, and Azithromycin. He completed his course of Remdesivir. He continues to need oxygen, so we arranged for him to have oxygen at home. I will send him to finish a 10 day course of Decadron. His BP has been high and I will send him on Norvasc, metoprolol ( HR borderline ) , I will add Lisinopril. He is advised to establish a PCP within couple of weeks. I explained to him the above plan and he is in agreement. Resuscitation Status: 11/08/20 12:05 Resuscitation Status Routine Resuscitation Status: FULL: Full Resuscitation - Labs Lab Results: 11/11/20 06:34 11/11/20 06:34 Abnormal Lab Results - Last 48 hrs 11/13/20 06:15: Lactate Dehydrogenase 386 H 11/13/20 06:15: C-Reactive Protein 2.32 H 11/13/20 06:15: D-Dimer 1.56 H Microbiology - Entire Visit 11/08/20 10:36 Venous blood - Left Arm Blood Culture - Final NO GROWTH IN 5 DAYS 11/08/20 10:36 Venous blood - Left Arm Blood Culture - Final NO GROWTH IN 5 DAYS - Physical Exam Vitals: Vital Signs (12 hours) Temp Pulse Resp BP Pulse Ox 11/13/20 08:00 98.6 F 68 20 160/86 H 93 L Weight Admit Weight 239 lb 0.2 oz Weight 239 lb 0.2 oz Physical Exam: The patient was seen and examined on the day of discharge. Problem - Problem (1) Hypertension Code(s): I10 - ESSENTIAL (PRIMARY) HYPERTENSION Status: Acute (2) Acute respiratory failure due to COVID-19 Code(s): U07.1 - COVID-19; J96.00 - ACUTE RESPIRATORY FAILURE, UNSP W HYPOXIA OR HYPERCAPNIA Status: Acute (3) Pneumonia due to 2019 novel coronavirus Code(s): U07.1 - COVID-19; J12.89 - OTHER VIRAL PNEUMONIA Status: Acute (4) Transaminitis Code(s): R74.01 - ELEVATION OF LEVELS OF LIVER TRANSAMINASE LEVELS Status: Acute (5) Obesity (BMI 30-39.9) Code(s): E66.9 - OBESITY, UNSPECIFIED Status: Chronic - Time spent with Patient (mins): 35 Plan - Discharge Medications Prescriptions: Dexamethasone 6 mg PO DAILY #4 tablet Lisinopril 20 mg PO DAILY #30 tablet Metoprolol Tartrate 25 mg PO BID #60 tab amLODIPine Besylate [Norvasc] 10 mg PO Q24H #30 tablet Home Medications: Medication Instructions Recorded Confirmed Type Dexamethasone 6 mg PO DAILY #4 tablet 11/13/20 Rx Lisinopril 20 mg PO DAILY #30 tablet 11/13/20 Rx Metoprolol Tartrate 25 mg PO BID #60 tab 11/13/20 Rx amLODIPine Besylate [Norvasc] 10 mg PO Q24H #30 tablet 11/13/20 Rx Allergies: No Known Allergies Allergy (Unverified 11/08/20 13:01) - Follow up Plan Referrals: [facility] [Outside] PROVIDER,NO PCP [Primary Care Provider] - Disposition: HOME Quality - Care Measures CORE MEASURES:: N/A
[2020-11-13 17:36] VITALS: BP 146/89
--- NOTE | 2020-11-14 07:55 | PQF ---
CLINICAL DOCUMENTATION CLARIFICATION FORM: Dear : Altagracia Solis Date / Time: 11/14/20 5695 Please exercise your independent, professional judgment in responding to the clarification form. Clinical indicators are provided on the bottom of this form for your review Please check appropriate box(es): [y ] Sepsis due to Covid Pneumonia [ ] Severe sepsis due to Covid Pneumonia with associated acute organ dysfunction: [ ] Acute Respiratory Failure [ ] Acute Kidney injury [ ] Localized infection without sepsis [ ] Other diagnosis, please specify [ ] Unable to determine In addition, please specify: Present on Admission (POA): [ yes] Yes [ ] No [ ] Unable to determine Physician Signature: Date/Time: For continuity of documentation, please document condition throughout progress notes and discharge summary. Thank You. To be completed by CDI/Coding staff for physician review: Present Clinical Indicators - Signs / Symptoms / Labs Results and Location in Medical Record [x] WBC 9.1, Plt count 250, Neutrophils 83.2, Lactic acid 2.3 Laboratory 11/08 [x] SARS Cov Rap RNA : Detected Serology 11/08 [x] Blood culture: No growth in 5 days Microbiology 11/08 [x] Chest X-ray : Bilateral patchy parenchymal changes, certainly evidence for Covid Pneumonia Imaging Dr Dougherty 11/08 [x] BP 144/102, Pulse 112, Resp 29, Temp 99.5 Vital signs 11/08 [x] In ED, he was hypoxic, he was also low grade fever, with mild FLORENCIO, as well as lactic acidosis, His Covid test was positive H&P p1 11/08 Dr Arredondo [x] Acute respiratory failure H&P p5 11/08 Dr Arredondo [x] FLORENCIO H&P p5 11/08 Dr Arredondo [x] Covid Pneumonia H&P p5 11/08 Dr Arredondo [x] Lactic acidosis H&P p5 11/08 Dr Arredondo Present Risk Factors Results and Location in Medical Record [x] 64 year-old Male H&P p1 11/08 Dr Arredondo [x] Covid Pneumonia H&P p5 11/08 Dr Arredondo [x] Obesity H&P p5 11/08 Dr Arredondo Present Treatments Results and Location in Medical Record [x] IV Azithromax 500 mg MAR 11/08 [x] IV Ceftriaxone 1 gm JAN 06 [x] IV Remdesivir 200 mg JAN 06 [x] IVF NS 1L JAN 06 [x] Isolation Order 11/08 CDS/Sales And Marketing Specialist Signature: Dee Dee Mcintosh Phone #: [phone] Date/Time: 11/14/20 0978 This is a permanent part of the Medical Record [facility]
== END 2020-11-13 17:53 | disposition home or self-care (01) | DRG 871 ==
LOC: ERS 09:13 → T4-A 12:18
PROVIDERS: ADMIT Internal Medicine; ATTEND Internal Medicine
PROC: XW033E5 Introduction of Remdesivir Anti-infective into Peripheral Vein, Percutaneous Approach, New Technology Group 5 (ICD-10-PCS; principal; 2020-11-08)
PROC: 8E0ZXY6 Isolation (ICD-10-PCS; 2020-11-08)
DX: A41.89 Other specified sepsis (principal); U07.1 COVID-19; J12.82 Pneumonia due to coronavirus disease 2019; J96.01 Acute respiratory failure with hypoxia; N17.9 Acute kidney failure, unspecified; E87.2 Acidosis; Z23 Encounter for immunization; I10 Essential (primary) hypertension; R74.01 Elevation of levels of liver transaminase levels; E66.9 Obesity, unspecified; Z68.37 Body mass index [BMI] 37.0-37.9, adult
CPT/HCPCS: 0240U; 36415; 71045; 71275; 80053; 80074; 82728; 83605; 83615; 84484; 85007; 85025; 85027; 85379; 86140; 87040; 90471; 90662; 90732; 93005; 96365; 96375; G0008; G0009; J0360; J0456; J0696; J1100; J1650; J3490; J7050; Q9967